=== PATIENT | male | born 1995 | race Caucasian/White ===

== ENCOUNTER 2016-05-18 22:42 | Emergency (ER) | payer SELFPAY ==
[~2016-05-18 22:42] MED LIST: ADVIL200 MG PO; ALBUTEROL2.5 MG/3 M IH; CARAFATE1 GM/10 ML PO; CELEXA 20MG20 MG/TA1 PO; CEPHALEXIN250 M1 PO; CITALOPRAM10 MG PO; KETOROLAC10 MG PO; NORCO 325 MG-51 TA1 PO; NORCO 325 MG-51 TAB PO; OMEPRAZOLE40 MG PO; ONE DAILY1 TA1 PO; ZOFRAN8 MG PO
[2016-05-19 01:22] VITALS: BP 133/76
== END 2016-05-19 01:22 | disposition home or self-care (01) ==
LOC: ED 22:42
DX: R55 Syncope and collapse (principal); F41.9 Anxiety disorder, unspecified; F44.5 Conversion disorder with seizures or convulsions; F43.8 Other reactions to severe stress

== ENCOUNTER 2016-08-25 23:53 | Emergency (ER) | payer OTHER ==
[2016-08-26] MEDS ORDERED: CYCLOBENZAPRINE10 M1 PO (00:44)
[2016-08-26 01:06] VITALS: BP 117/72
== END 2016-08-26 01:06 | disposition home or self-care (01) ==
LOC: ED 23:53
DX: M54.5 Low back pain (principal)
CPT/HCPCS: J1885; J2360

== ENCOUNTER 2016-09-30 21:36 | Emergency (ER) | payer OTHER ==
[~2016-09-30] VITALS: Ht 182.9 cm; Wt 93.2 kg
[~2016-09-30 21:36] MED LIST changes: +CYCLOBENZAPRINE10 M1 PO
[2016-09-30 23:00] VITALS: BP 124/70
== END 2016-09-30 23:00 | disposition home or self-care (01) ==
LOC: ED 21:36
DX: J06.9 Acute upper respiratory infection, unspecified (principal); F17.210 Nicotine dependence, cigarettes, uncomplicated

== ENCOUNTER 2016-10-31 22:12 | Emergency (ER) | payer OTHER ==
[~2016-10-31] VITALS: Ht 185.4 cm; Wt 90.0 kg
[2016-10-31 23:04] VITALS: BP 113/71
== END 2016-10-31 23:04 | disposition home or self-care (01) ==
LOC: ED 22:12
DX: S61.212A Laceration without foreign body of right middle finger without damage to nail, initial encounter (principal); W25.XXXA Contact with sharp glass, initial encounter; Y92.000 Kitchen of unspecified non-institutional (private) residence as the place of occurrence of the external cause; F41.9 Anxiety disorder, unspecified
CPT/HCPCS: 90715; A4649

== ENCOUNTER 2017-08-31 00:54 | Emergency (ER) | payer OTHER ==
[~2017-08-31] VITALS: Ht 185.4 cm; Wt 95.9 kg
[2017-08-31 01:40] VITALS: BP 140/74
== END 2017-08-31 01:40 | disposition home or self-care (01) ==
LOC: ED 00:54
DX: S00.532A Contusion of oral cavity, initial encounter (principal); W22.8XXA Striking against or struck by other objects, initial encounter; F17.210 Nicotine dependence, cigarettes, uncomplicated

== ENCOUNTER 2017-12-12 23:43 | Emergency (ER) | payer OTHER ==
[2017-12-13 01:11] VITALS: BP 124/87
== END 2017-12-13 01:11 | disposition home or self-care (01) ==
LOC: ED 23:43
DX: S50.01XA Contusion of right elbow, initial encounter (principal); S50.311A Abrasion of right elbow, initial encounter; M25.531 Pain in right wrist; R56.9 Unspecified convulsions; W18.30XA Fall on same level, unspecified, initial encounter; Z79.899 Other long term (current) drug therapy; F32.9 Major depressive disorder, single episode, unspecified

== ENCOUNTER 2018-01-20 22:31 | Emergency (ER) | payer OTHER ==
[2018-01-20 23:55] VITALS: BP 124/89
== END 2018-01-20 23:55 | disposition home or self-care (01) ==
LOC: ED 22:31
DX: S93.401A Sprain of unspecified ligament of right ankle, initial encounter (principal); X50.1XXA Overexertion from prolonged static or awkward postures, initial encounter; Y92.008 Other place in unspecified non-institutional (private) residence as the place of occurrence of the external cause; F17.200 Nicotine dependence, unspecified, uncomplicated
CPT/HCPCS: J1885

== ENCOUNTER 2018-02-17 16:44 | Emergency (ER) | payer OTHER ==
[~2018-02-17] VITALS: Ht 185.4 cm; Wt 97.7 kg
[~2018-02-17 16:44] MED LIST changes: -OMEPRAZOLE40 MG PO; +PRILOSEC OTC20 MG PO
[2018-02-17] MEDS ORDERED: PROAIR HFA0.09 MG/AC IH (17:00)
[2018-02-17] MEDS ORDERED: SERTRALINE HYD100 MG PO (17:01)
[2018-02-17 19:10] VITALS: BP 124/67
== END 2018-02-17 19:10 | disposition home or self-care (01) ==
LOC: ED 16:44
DX: S30.0XXA Contusion of lower back and pelvis, initial encounter (principal); W18.39XA Other fall on same level, initial encounter; Y99.0 Civilian activity done for income or pay; Z87.891 Personal history of nicotine dependence; Z79.899 Other long term (current) drug therapy; J45.909 Unspecified asthma, uncomplicated
CPT/HCPCS: J1885

== ENCOUNTER → 2018-07-10 | Outpatient (CLI) | payer OTHER ==
[~2018-07-10] MED LIST changes: +PROAIR HFA0.09 MG/AC IH; +SERTRALINE HYD100 MG PO
== END ==
LOC: RAD 10:25
DX: M79.671 Pain in right foot (principal)

== ENCOUNTER 2022-02-21 16:09 | Emergency (ER) | payer SELFPAY ==
[~2022-02-21] VITALS: Ht 182.9 cm; Wt 59.1 kg
[2022-02-21 16:28] VITALS: BP 102/64
[2022-02-21 17:39] LABS: BASO # 0.05 K/mm3 (0.02-0.10); EOS # 0.22 K/mm3 (0.04-0.40); EOS % 2.2 % (0.0-4.0); HEMATOCRIT 38.3 % (42.0-52.0); HEMOGLOBIN 12.4 g/dL (13.5-18.0); LYMPH# 2.14 K/mm3 (1.50-4.00); MEAN CELL VOLUME 89 fl (78-100); MEAN CORPUSCULAR HEMOGLOBIN 29 pg (27-31); MEAN CORPUSCULAR HGB CONC 32 g/dL (33-37); MEAN PLATELET VOLUME 10.9 fl (7.4-10.4); MONO # 0.68 K/mm3 (0.20-0.80); NEU # 7.08 K/mm3 (1.40-6.50); PLATELET COUNT 289 K/mm3 (130-400); RED CELL DISTRIBUTION WIDTH 13.5 % (11.5-14.5); WHITE BLOOD COUNT 10.2 K/mm3 (4.8-10.8)
[2022-02-21 17:45] LABS: ALBUMIN 4.5 g/dL (3.5-5.0); POTASSIUM 3.8 mmol/L (3.5-5.1)
[2022-02-21 17:49] LABS: TOTAL BILIRUBIN 0.4 mg/dL (0.2-1.2)
[2022-02-21 19:32] LABS: PH-URINE 5.5 (5.0 - 8.0); URINE APPEARANCE CLEAR; URINE COLOR YELLOW; URINE PROTEIN(semi-quant) TRACE (NEGATIVE)
[2022-02-21 19:33] LABS: URINE BILIRUBIN NEGATIVE (NEGATIVE); URINE BLOOD NEGATIVE (NEGATIVE); URINE GLUCOSE NEGATIVE (NEGATIVE); URINE KETONE NEGATIVE (NEGATIVE); URINE LEUKOCYTE ESTERASE NEGATIVE (NEGATIVE); URINE NITRATE NEGATIVE (NEGATIVE); URINE UROBILINOGEN NORMAL (NORMAL); URINE WBC 0-1 /hpf (0-3)
== END 2022-02-21 19:45 | disposition home or self-care (01) ==
LOC: ED 16:09
PROVIDERS: Physician Assistant
DX: R10.13 Epigastric pain (principal); M25.511 Pain in right shoulder; Z28.310 Unvaccinated for COVID-19; X50.0XXA Overexertion from strenuous movement or load, initial encounter; Y92.59 Other trade areas as the place of occurrence of the external cause; Y99.0 Civilian activity done for income or pay
CPT/HCPCS: Q9967

== ENCOUNTER 2022-08-24 11:46 | Emergency (ER) | payer BC ==
[2022-08-24] MEDS ORDERED: NEURONTIN300 MG/CAP (12:04)
[2022-08-24] MEDS ORDERED: LAMOTRIGINE100 M3 PO (12:04)
[2022-08-24] MEDS ORDERED: BUSPIRONE HYDRO10 MG PO (12:04)
[2022-08-24] MEDS ORDERED: ALBUTEROL SULF6.7 GM IH (12:04)
[2022-08-24] MEDS ORDERED: QUETIAPINE FUMA50 M1 PO (12:04)
[2022-08-24 12:27] LABS: BASO # 0.04 K/mm3 (0.02-0.10); EOS % 4.9 % (0.0-4.0); HEMOGLOBIN 12.8 g/dL (13.5-18.0); LYMPH# 1.22 K/mm3 (1.50-4.00); MEAN CELL VOLUME 91 fl (78-100); MEAN CORPUSCULAR HEMOGLOBIN 30 pg (27-31); MEAN CORPUSCULAR HGB CONC 33 g/dL (33-37); MEAN PLATELET VOLUME 10.7 fl (7.4-10.4); MONO # 0.71 K/mm3 (0.20-0.80); PLATELET COUNT 246 K/mm3 (130-400); RED BLOOD COUNT 4.28 M/mm3 (4.20-5.60); WHITE BLOOD COUNT 8.2 K/mm3 (4.8-10.8)
[2022-08-24 12:40] LABS: ALBUMIN 4.4 g/dL (3.5-5.0); POTASSIUM 4.1 mmol/L (3.5-5.1); SODIUM 139 mmol/L (136-145)
[2022-08-24 12:41] LABS: CALCIUM 9.3 mg/dL (8.3-10.5)
[2022-08-24 12:42] LABS: GLUCOSE 96 mg/dL (75-110); TOTAL PROTEIN 6.6 g/dL (6.4-8.3)
[2022-08-24 12:44] LABS: CARBON DIOXIDE 25 mmol/L (22-29); TOTAL BILIRUBIN 0.4 mg/dL (0.2-1.2)
[2022-08-24 12:48] LABS: AST-SGOT 15 U/L (5-34)
[2022-08-24 12:49] LABS: ALT/SGPT 18 U/L (0-55)
[2022-08-24 12:56] LABS: TROPONIN-I < 0.030 ng/mL (<0.030)
[2022-08-24] MEDS ORDERED: PREDNISONE20 MG PO (13:10)
[2022-08-24] MEDS ORDERED: AMOXICILLIN875 MG PO (13:10)
[2022-08-24 15:02] VITALS: BP 125/71
== END 2022-08-24 13:20 | disposition home or self-care (01) ==
LOC: ED 11:46
PROVIDERS: Family Medicine
DX: J45.41 Moderate persistent asthma with (acute) exacerbation (principal); R00.0 Tachycardia, unspecified; Z88.1 Allergy status to other antibiotic agents; Z28.310 Unvaccinated for COVID-19
CPT/HCPCS: J2930; J7030

== ENCOUNTER 2023-06-01 07:28 | Emergency (ER) | payer BC ==
[~2023-06-01] VITALS: Ht 182.9 cm; Wt 94.5 kg
[~2023-06-01 07:28] MED LIST changes: +ALBUTEROL SULF6.7 GM IH; +AMOXICILLIN875 MG PO; +BUSPIRONE HYDRO10 MG PO; +LAMOTRIGINE100 M3 PO; +NEURONTIN300 MG/CAP; +PREDNISONE20 MG PO; +QUETIAPINE FUMA50 M1 PO
[2023-06-01 07:57] LABS: BASO # 0.04 K/mm3 (0.02-0.10); EOS # 0.21 K/mm3 (0.04-0.40); EOS % 3.4 % (0.0-4.0); HEMOGLOBIN 13.7 g/dL (13.5-18.0); LYMPH# 1.94 K/mm3 (1.50-4.00); MEAN CELL VOLUME 90 fl (78-100); MEAN CORPUSCULAR HEMOGLOBIN 29 pg (27-31); MEAN CORPUSCULAR HGB CONC 33 g/dL (33-37); MEAN PLATELET VOLUME 10.7 fl (7.4-10.4); MONO # 0.51 K/mm3 (0.20-0.80); NEU # 3.41 K/mm3 (1.40-6.50); PLATELET COUNT 283 K/mm3 (130-400); RED BLOOD COUNT 4.68 M/mm3 (4.20-5.60); RED CELL DISTRIBUTION WIDTH 12.7 % (11.5-14.5); WHITE BLOOD COUNT 6.2 K/mm3 (4.8-10.8)
[2023-06-01 08:04] LABS: ALBUMIN 4.5 g/dL (3.5-5.0)
[2023-06-01 08:05] LABS: CALCIUM 9.4 mg/dL (8.3-10.5)
[2023-06-01 08:07] LABS: TOTAL PROTEIN 6.9 g/dL (6.4-8.3)
[2023-06-01 08:08] LABS: TOTAL BILIRUBIN 0.4 mg/dL (0.2-1.2)
[2023-06-01 09:20] LABS: URINE APPEARANCE CLEAR (CLEAR); URINE COLOR YELLOW (YELLOW)
[2023-06-01 09:21] LABS: URINE BILIRUBIN NEGATIVE (NEGATIVE); URINE BLOOD NEGATIVE (NEGATIVE); URINE GLUCOSE NEGATIVE (NEGATIVE); URINE KETONE NEGATIVE (NEGATIVE); URINE LEUKOCYTE ESTERASE NEGATIVE (NEGATIVE); URINE NITRATE NEGATIVE (NEGATIVE); URINE PROTEIN(semi-quant) NEGATIVE (NEGATIVE)
[2023-06-01 09:23] LABS: URINE MUCUS PRESENT (NOT PRESENT)
[2023-06-01] MEDS ORDERED: OMEPRAZOLE40 MG PO (10:16)
[2023-06-01 10:45] VITALS: BP 133/70
== END 2023-06-01 11:06 | disposition home or self-care (01) ==
LOC: ED 07:28
PROVIDERS: Nurse Practitioner
DX: K21.9 Gastro-esophageal reflux disease without esophagitis (principal); Z90.49 Acquired absence of other specified parts of digestive tract; Z79.899 Other long term (current) drug therapy
CPT/HCPCS: Q9967

== ENCOUNTER → 2023-07-27 | Outpatient (CLI) | payer BC ==
[~2023-07-27] MED LIST changes: +OMEPRAZOLE40 MG PO
== END ==
LOC: RAD 13:16
DX: M25.561 Pain in right knee (principal)

== ENCOUNTER → 2023-09-26 | Outpatient (CLI) | payer BC | LOC: LAB 08:00 | DX: B34.9 Viral infection, unspecified (principal) ==